=== PATIENT | male | born 1955 | race Caucasian/White ===

== ENCOUNTER → 2019-04-28 | Outpatient (CLI) | payer BC ==
[~2019-04-28] VITALS: Ht 185.4 cm; Wt 125.8 kg
[~2019-04-28] MED LIST: AMARYL2 MG PO; ASPIRIN E.C. 8181 MG PO; CHLORTHALID PO; CRESTOR20 MG PO; GLUCOPHAGE500 MG/TAB PO; LIPITOR 80MG80 MG PO; LISINOPRIL10 MG PO; METFORMIN850 MG PO; NORCO 325 MG-7.1 TAB PO; PRINIVIL20 MG PO; SIMVASTATIN80 MG PO; TRULICITY0.75 MG/0. SQ; VICTOZA6 MG/ML SC; [UNRECOGNIZED DRUG - OTHER]; diabetic med PO
[2019-04-28 06:05] VITALS: BP 160/95; PULSE 61
[2019-04-28 07:04] VITALS: BP 162/94; PULSE 69
[2019-04-28 07:08] VITALS: BP 162/90; PULSE 66
== END ==
LOC: COL.CARD 05:45
DX: R07.9 Chest pain, unspecified (principal); M89.8X1 Other specified disorders of bone, shoulder; E11.9 Type 2 diabetes mellitus without complications; I10 Essential (primary) hypertension; E78.5 Hyperlipidemia, unspecified
CPT/HCPCS: A9500; J2785

== ENCOUNTER 2019-05-04 10:07 | Day surgery (SDC) | payer BC ==
[~2019-05-04] VITALS: Ht 185.6 cm; Wt 124.0 kg
[2019-05-04] VITALS (10 sets, daily range): BP systolic 133–174; BP diastolic 82–106; PULSE 50–64; TEMP 98.1
[2019-05-04 10:37] LABS: MEAN CELL VOLUME 88 fl (80.0-100.0); MEAN CORPUSCULAR HEMOGLOBIN 29 pg (27.0-31.0); MEAN CORPUSCULAR HGB CONC 33 g/dl (33.0-37.0); MEAN PLATELET VOLUME 10.1 fl (7.4-10.4); PLATELET COUNT 326 K/mm3 (130-400); RED BLOOD COUNT 5.48 M/mm3 (4.20-5.60)
[2019-05-04 10:45] LABS: INR 0.8 (0.8-3.0); PROTHROMBIN TIME 8.8 SECONDS (9.7-12.8)
[2019-05-04 10:47] LABS: CALCIUM 9.4 mg/dL (8.4-10.2); CREATININE, serum 0.8 (0.66-1.25); POTASSIUM 4.3 mmol/L (3.4-5.0)
[2019-05-04] MEDS ORDERED: XIGDUO5/1000 (10:59)
--- NOTE | 2019-05-04 12:36 | NUR ---
PLEASE SEE MERGE FOR ALL MEDICATION ADMINISTRATION TIMES AND SEDATION ASSESSMENT DATA DURING AND POST PROCEDURE, ALLENS SIGN POSTIVE RIGHT RADIAL PREPPED AND DRAPED.
[2019-05-04] MEDS ORDERED: LIPITOR 40MG TA40 MG PO (12:57)
--- NOTE | 2019-05-04 13:05 | NUR ---
Pt returned to [facility] 11 per bed s/p heart cath. Pt resting well, family at bedside.
--- NOTE | 2019-05-04 15:20 | NUR ---
Pt has ambulated, voided and tia PO intake s n/v. R Radial band removed, site remains soft, C/D/I. R radial site covered with bandaid and gauze and wrapped with coban. PIV removed with catheter intact.
--- NOTE | 2019-05-04 16:20 | NUR ---
Pt discharged per w/c by nurse with .
== END 2019-05-04 17:46 | disposition home or self-care (01) ==
LOC: COL.CAR 10:07
PROVIDERS: Internal Medicine Cardiovascular Disease
DX: R07.89 Other chest pain (principal); R94.39 Abnormal result of other cardiovascular function study; E11.9 Type 2 diabetes mellitus without complications; I10 Essential (primary) hypertension; E66.9 Obesity, unspecified; Z79.82 Long term (current) use of aspirin; I25.10 Atherosclerotic heart disease of native coronary artery without angina pectoris; E78.2 Mixed hyperlipidemia; Z79.4 Long term (current) use of insulin
CPT/HCPCS: J1644; J2250; J3010; Q9967